=== PATIENT | female | born 1960 | race Asian ===

== ENCOUNTER 2018-06-25 11:00 | Emergency (ER) | payer MEDICAID ==
[~2018-06-25] VITALS: Ht 152.4 cm; Wt 69.1 kg
[2018-06-25 11:34] LABS: BASOPHIL % 0.5 % (0-2); PLATELET COUNT 195 x10^3mcL (130-400); RED CELL DISTRIBUTION WIDTH 12.4 % (11.5-14.5)
[2018-06-25 12:01] LABS: CALCIUM 8.5 mg/dL (8.5-10.1); CARBON DIOXIDE 28.5 mmol/L (21-32); CHLORIDE SERUM 109 mmol/L (98-107); CREATININE SERUM 0.8 mg/dL (0.6-1.0); GFR1 > 60 mL/min; GLUCOSE SERUM 119 mg/dL (74-106); POTASSIUM SERUM 3.8 mmol/L (3.5-5.1); SODIUM SERUM 144 mmol/L (136-145)
[2018-06-25 12:05] LABS: ALBUMIN 3.6 g/dL (3.4-5.0); ALKALINE PHOSPHATASE 112 U/L (46-116); ALT/SGPT 32 U/L (14-59); AST/SGOT 17 U/L (15-37); BILIRUBIN TOTAL 0.67 mg/dL (0.20-1.00); LIPASE 80 IU/L (73-393); TOTAL PROTEIN, SERUM 7.7 g/dL (6.4-8.2)
[2018-06-25 12:54] LABS: UA SPECIFIC GRAVITY 1.015 (1.005-1.035); microscopic required? YES; urine erythrocyte 3+ (NEGATIVE)
[2018-06-25 15:11] VITALS: BP 140/80
[2018-06-26] MEDS ORDERED: FLOMAX0.4 MG (13:17)
[2018-06-26] MEDS ORDERED: IBUPROFEN600 MG (13:18)
[2018-06-26] MEDS ORDERED: TRAMADOL HCL50 MG (13:19)
== END 2018-06-25 15:11 | disposition home or self-care (01) ==
LOC: ED 11:00
PROVIDERS: Emergency Medicine
PROC: 3E033NZ Introduction of Analgesics, Hypnotics, Sedatives into Peripheral Vein, Percutaneous Approach (ICD-10-PCS; principal; 2018-06-25)
PROC: 3E033GC Introduction of Other Therapeutic Substance into Peripheral Vein, Percutaneous Approach (ICD-10-PCS; 2018-06-25)
PROC: BW21ZZZ Computerized Tomography (CT Scan) of Abdomen and Pelvis (ICD-10-PCS; 2018-06-25)
DX: N20.0 Calculus of kidney (principal); N23 Unspecified renal colic; K76.89 Other specified diseases of liver
CPT/HCPCS: J1885; J2405; J7030

== ENCOUNTER 2018-06-26 11:44 | Inpatient (IN) | payer MEDICAID ==
[~2018-06-26] VITALS: Ht 157.5 cm; Wt 69.5 kg
[2018-06-26 11:48] VITALS: Ht 157.5 cm; Wt 69.5 kg
[2018-06-26 12:09] LABS: BASOPHIL % 0.1 % (0-2); PLATELET COUNT 203 x10^3mcL (130-400); RED CELL DISTRIBUTION WIDTH 13.1 % (11.5-14.5)
[2018-06-26 12:26] LABS: CARBON DIOXIDE 24.7 mmol/L (21-32); CHLORIDE SERUM 105 mmol/L (98-107); GFR1 > 60 mL/min; GLUCOSE SERUM 129 mg/dL (74-106); POTASSIUM SERUM 3.5 mmol/L (3.5-5.1); SODIUM SERUM 140 mmol/L (136-145)
[2018-06-26 12:31] LABS: ALBUMIN 3.7 g/dL (3.4-5.0); ALKALINE PHOSPHATASE 105 U/L (46-116); ALT/SGPT 33 U/L (14-59); AST/SGOT 22 U/L (15-37); BILIRUBIN TOTAL 0.7 mg/dL (0.20-1.00); LIPASE 58 IU/L (73-393); TOTAL PROTEIN, SERUM 7.8 g/dL (6.4-8.2)
[2018-06-26] MEDS ORDERED: FLOMAX0.4 MG (13:17)
[2018-06-26] MEDS ORDERED: IBUPROFEN600 MG (13:18)
[2018-06-26] MEDS ORDERED: TRAMADOL HCL50 MG (13:19)
[2018-06-26 13:59] LABS: T3 TOTAL 1.33 ng/mL
[2018-06-26 14:05] LABS: microscopic required? YES; urine erythrocyte 3+ (NEGATIVE)
[2018-06-26 14:05] LABS: FREE T4 1.35 ng/dL (0.76-1.46); FREE THYROXINE INDEX 3.7 ug/dL (1.4-4.5); T4(THYROXINE) 11.1 ug/dL (4.7-13.3)
[2018-06-26 14:06] LABS: CHOLESTEROL/HDL RATIO 3.8
[2018-06-26 14:15] LABS: AMPHETAMINE QUAL UR NONE DETECTED (See below)
[2018-06-26 14:59] VITALS: BP 129/71
[2018-06-26 17:31] VITALS: BP 114/66
[2018-06-26 20:56] VITALS: BP 135/74
[2018-06-27 05:17] VITALS: BP 149/78
[2018-06-27 07:22] LABS: CALCIUM 7.5 mg/dL (8.5-10.1); CARBON DIOXIDE 22.9 mmol/L (21-32); CHLORIDE SERUM 110 mmol/L (98-107); CREATININE SERUM 0.9 mg/dL (0.6-1.0); GFR1 > 60 mL/min; GLUCOSE SERUM 114 mg/dL (74-106); MAGNESIUM 1.9 mg/dL (1.8-2.4); PHOSPHOROUS 2.5 mg/dL (2.5-4.9); POTASSIUM SERUM 3.5 mmol/L (3.5-5.1); SODIUM SERUM 142 mmol/L (136-145)
[2018-06-27 07:36] LABS: PLATELET COUNT 162 x10^3mcL (130-400); RED CELL DISTRIBUTION WIDTH 12.6 % (11.5-14.5)
[2018-06-27 07:39] LABS: BASOPHIL % 0 % (0-2)
[2018-06-27 08:39] VITALS: BP 127/60
[2018-06-27 10:35] VITALS: BP 127/60
[2018-06-27 16:25] VITALS: BP 156/57
[2018-06-27 22:00] VITALS: BP 145/65
[2018-06-28 05:41] VITALS: BP 124/56
[2018-06-28 06:33] LABS: BASOPHIL % 0.1 % (0-2); PLATELET COUNT 159 x10^3mcL (130-400); RED CELL DISTRIBUTION WIDTH 12.9 % (11.5-14.5)
[2018-06-28 06:36] LABS: CALCIUM 8.1 mg/dL (8.5-10.1); CREATININE SERUM 1.1 mg/dL (0.6-1.0); PHOSPHOROUS 2.7 mg/dL (2.5-4.9); POTASSIUM SERUM 4.1 mmol/L (3.5-5.1)
[2018-06-28 09:27] VITALS: BP 168/78
[2018-06-28 09:32] VITALS: BP 142/69
[2018-06-28] MEDS ORDERED: DUL5 PO (14:51)
[2018-06-28] MEDS ORDERED: KEFLEX500 M1 PO (14:53)
[2018-06-28] MEDS ORDERED: NOR10T PO (14:54)
[2018-06-28 14:55] VITALS: BP 142/69
== END 2018-06-28 15:41 | disposition home or self-care (01) | DRG 463 ==
LOC: ED 11:44 → MU 13:13
PROVIDERS: Emergency Medicine; General Practice
DX: N39.0 Urinary tract infection, site not specified (principal); E83.51 Hypocalcemia; N20.0 Calculus of kidney; R31.9 Hematuria, unspecified; K59.00 Constipation, unspecified; Z68.26 Body mass index [BMI] 26.0-26.9, adult
CPT/HCPCS: 83880; 84439; J0696; J1885; J2270; J2405; J2550; J3010; J7030; Q0092